=== PATIENT | female | born 1980 | race Caucasian/White ===

== ENCOUNTER → 2019-04-02 08:40 | Outpatient (CLI) | payer OTHER, SELFPAY ==
--- NOTE | 2019-04-02 | DI.RAD.S_ITS ---
PROCEDURE: FL KNEE INJECTION MR/CT RT INDICATIONS: RIGHT KNEE MENISCAL TEAR TECHNIQUE: The indications, alternatives, benefits, risks, and complications of the procedure were explained to the patient. Written informed consent was obtained and placed in the chart. The knee was examined fluoroscopically, and a site chosen for knee joint injection. The skin was prepped and draped in a sterile fashion, and 1% Lidocaine infiltrated from the skin down to the articular surface. A hypodermic needle was then introduced into the joint and iodinated contrast media was instilled to confirm the intra-articular needle tip placement. This was followed by approximately 50 mL dilute solution of a gadolinium containing MR contrast agent. The needle was removed and a bandage was applied. An Axel wrap was then applied around the knee joint to keep the contrast from collecting in the suprapatellar recess. The patient experienced no complications throughout the procedure and left the fluoroscopic suite in no apparent distress. FINDINGS: Single fluoroscopic spot image demonstrates intra-articular location to injected iodinated contrast. IMPRESSION: Successful fluoroscopically guided administration of dilute Gadolinium solution into the knee joint for MR arthrogram. Dictated by: Chris Styles M.D. on 04/02/2019 at 16:47 Approved by: Chris Styles M.D. on 04/02/2019 at 16:47
--- NOTE | 2019-04-02 | DI.MRI.S_ITS ---
PROCEDURE: MR KNEE RT W CON INDICATIONS: RIGHT KNEE MENISCAL TEAR TECHNIQUE: After the administration of 50 mL of dilute intra-articular Gadolinium contrast, sagittal T1 spin echo with fat saturation and PD fast spin echo with fat saturation, coronal T1 spin echo with and without fat saturation, coronal T2 fast spin echo with fat saturation, axial PD fast spin echo with fat saturation through the knee. COMPARISON: None. FINDINGS: Image quality: Excellent. Menisci: Medial meniscus intact. Lateral meniscus intact. Cruciate ligaments: Anterior cruciate ligament appears intact. Posterior cruciate ligament appears intact. Medial structures: The medial collateral ligament appears intact. Semimembranosus tendon appears intact. Visualized portions of the pes anserinus tendons appear normal. No abnormal bursal fluid. Lateral structures: The lateral collateral ligament intact. Biceps femoris tendon appears intact. Popliteus tendon grossly unremarkable. Iliotibial band appears intact. Anterior structures: Quadriceps tendon intact. Medial and lateral patellofemoral ligaments intact. Mild distal patellar tendinopathy at the insertion, with adjacent soft tissue edema. Hoffa's fat pad unremarkable. Bones and cartilage: No focal marrow contusion or discrete low signal fracture line. Within the medial compartment, articular cartilage appears preserved Within the lateral compartment, articular cartilage appears preserved Within the patellofemoral compartment, articular cartilage appears preserved Joint space: There are nondependent incidentally noted air bubbles related to injection No Baldwin's cyst. No specific evidence of intra-articular loose body. IMPRESSION: Mild distal patellar tendinopathy with adjacent soft tissue edema Dictated by: Chris Styles M.D. on 04/02/2019 at 12:36 Approved by: Chris Styles M.D. on 04/02/2019 at 12:48
== END ==
PROVIDERS: PCP Family Medicine; Visit Provider Family Medicine
DX: S83.241A Other tear of medial meniscus, current injury, right knee, initial encounter (principal); M67.961 Unspecified disorder of synovium and tendon, right lower leg
CPT/HCPCS: 27369; 73722; 77002

== ENCOUNTER → 2020-06-12 11:30 | Outpatient (CLI) | payer OTHER, SELFPAY ==
--- NOTE | 2020-06-12 | DI.MRI.S_ITS ---
PROCEDURE: MR LUMBAR SPINE WO CON INDICATIONS: Dorsalgia, unspecified TECHNIQUE: Noncontrast sagittal T1 spin echo and T2 fast echo, sagittal STIR, axial T1 and T2 fast spin echo through the lumbar spine. In cases with scoliosis, additional coronal T2 fast spin echo may be performed. COMPARISON: None. FINDINGS: Image quality: Excellent. Alignment and Curvature: No plain films are available for comparison, for numbering purposes. Thus, for the purposes of this examination, 5 lumbar type vertebral bodies will be presumed, as denoted on the montage panel. This should be confirmed and correlated with plain films, prior to any lumbar spinal intervention. Alignment is normal. Bone Marrow: Marrow is of normal overall signal. No acute vertebral body compression fractures. Spinal Cord: Conus medullaris terminates at the lower L1 level. Visualized cord demonstrates normal signal and size. Paraspinous Soft Tissues: No paravertebral masses. T12-L1: Normal appearance. L1-L2: Normal appearance. L2-L3: Normal appearance. L3-L4: Normal appearance. L4-L5: Normal appearance. L5-S1: Normal appearance. IMPRESSION: 1. Negative examination. No neural impingement. No explanation for lumbar pain. Dictated by: Mario Muñoz M.D. on 06/12/2020 at 13:06 Approved by: Mario Muñoz M.D. on 06/12/2020 at 13:08
== END ==
PROVIDERS: PCP Family Medicine; Referring Provider Family Medicine; Visit Provider Family Medicine
DX: M54.5 Low back pain (principal)
CPT/HCPCS: 72148

== ENCOUNTER → 2020-10-10 09:34 | Outpatient (CLI) | payer OTHER, SELFPAY ==
--- NOTE | 2020-10-10 | DI.MRI.S_ITS ---
PROCEDURE: MR SHOULDER RT WO CON INDICATIONS: Pain in right shoulder TECHNIQUE: Noncontrast oblique coronal T2 fast spin echo with fat saturation, oblique sagittal T1 spin echo and T2 fast spin echo with fat saturation, axial T1 spin echo and T2 fast spin echo with fat saturation through the shoulder. COMPARISON: None. FINDINGS: Image quality: Partially degraded by motion artifact. Rotator cuff: There is low-grade bursal surface fraying of the mid and posterior supraspinatus tendon at the humeral insertion site extending to the musculotendinous junction. Low-grade partial-thickness intrasubstance tearing of the upper subscapularis tendon at the humeral insertion site extending to the musculotendinous junction. The supraspinatus, infraspinatus, and subscapularis tendons otherwise appear intact throughout. Sagittal images demonstrate no muscle atrophy. Bones and bursae: No bone marrow contusions or fractures. Moderate acromioclavicular joint degeneration. The acromion demonstrates conventional anatomy, without an os acromiale. No pathologic subacromial-subdeltoid or subcoracoid bursal fluid is present. Capsule and soft tissues: Labrum is grossly unremarkable The long head of the biceps tendon demonstrates normal location and morphology. The rotator interval appears normal, without fibrosis. The coracohumeral ligament is normal in thickness. IMPRESSION: 1. Low-grade partial-thickness tearing of the subscapularis and supraspinatus tendons. 2. Acromioclavicular joint osteoarthritis. Dictated by: Maroi Muñoz M.D. on 10/10/2020 at 13:01 Approved by: Mario Muñoz M.D. on 10/10/2020 at 13:02
== END ==
PROVIDERS: PCP Family Medicine; Referring Provider Family Medicine; Visit Provider Family Medicine
DX: M25.511 Pain in right shoulder (principal); M19.011 Primary osteoarthritis, right shoulder; M75.111 Incomplete rotator cuff tear or rupture of right shoulder, not specified as traumatic
CPT/HCPCS: 73221